=== PATIENT | female | born 1990 | race American Indian/Alaskan Native ===

== ENCOUNTER 2024-09-06 12:22 | Emergency (ER) | payer OTHER ==
[~2024-09-06] VITALS: Ht 160 cm; Wt 105.0 kg
[2024-09-06] MEDS ORDERED: VENTOLIN HFA18 GM INH (12:37)
[2024-09-06] MEDS ORDERED: KETOROLAC TROMETHAMINE 15 MG/ML VIAL IV ONE ×2 (13:00→17:15)
[2024-09-06] MEDS ORDERED: HYDROmorphone HCL 1 MG/ML SYR IV PRN ×3 (13:00→17:30)
[2024-09-06 13:03] LABS: BASOPHILS 0.4 % (0.1-1.2); EOSINOPHILS 1.2 % (0.7-5.8); LYMPHOCYTES 16.3 % (19.3-51.7); MCH 27.2 PG (25.6-32.2); MCHC 33.0 g/dL (32.2-35.5); MCV 82.5 fL (79.4-94.8); MONOCYTES 5.2 % (4.7-12.5); NEUTROPHILS 76.7 % (34.0-71.1); RBC 4.92 M/uL (3.93-5.22)
[2024-09-06 13:22] LABS: ALT (SGPT) 25.0 U/L (14-59); AST (SGOT) 15.0 U/L (15-37); GLOMERULAR FILTRATION RATE,EST 67.0 mL/min (>60); PROTEIN, TOTAL 7.5 g/dL (6.4-8.2); UREA NITROGEN 16.0 mg/dL (7-18)
[2024-09-06] MEDS ORDERED: ACETAMINOPHEN 500 MG TAB PO ONE (17:15)
[2024-09-06] MEDS ORDERED: DEXAMETHASONE SOD PHOS 10 MG/ML VIAL IV ONE (17:15)
[2024-09-06] MEDS ORDERED: HYDROCODONE/ACETA 5/325 TAB PO ONE (18:45)
[2024-09-06] MEDS ORDERED: HYDROCODON-ACE1 EA10 PO (19:34)
[2024-09-06] MEDS ORDERED: METHYLPREDNISOLO4 M1 PO (19:34)
[2024-09-06] MEDS ORDERED: HYDROCODONE BIT/ACETAMINOPHEN 5/325 MG 1 TAB HOME.PACK PO ONE (19:45)
[2024-09-06] MEDS ORDERED: KETOROLAC TROMETHAMINE 30 MG/ML VIAL IV ONE (20:15)
[2024-09-06 21:21] VITALS: BP 158/92
== END 2024-09-06 21:22 | disposition home or self-care (01) ==
LOC: ED 12:22
PROVIDERS: Emergency Medicine
DX: M51.369 Other intervertebral disc degeneration, lumbar region without mention of lumbar back pain or lower extremity pain (principal); Z88.5 Allergy status to narcotic agent
CPT/HCPCS: 36415; 72148; 80053; 84703; 85025; 96374; 96375; 96376; 99284-25; A9270; J1100; J1171; J1885